=== PATIENT | male | born 1955 | race Hispanic/Latino ===

== ENCOUNTER 2018-10-10 16:16 | Inpatient (IN) | payer SELFPAY ==
[2018-10-10 16:50] LABS: #Eosinphils 0.2 thou/uL (0.0-0.7); #Lymphocytes 1.8 thou/uL (1.20-3.40); #Monocytes 0.4 thou/uL (0.11-0.59); #Neutrophils 4.2 thou/uL (1.40-6.50); %Basophils 0.4 % (0.0-1.0); %Eosinophils 2.8 % (0.0-10.0); %Lymphocytes 27.4 % (21.0-51.0); %Monocytes 5.9 % (0.0-10.0); %Neutrophils 63.5 % (42.0-75.0); Hemoglobin 14.3 g/dL (14.0-18.0); Mean Corpuscular HGB CONC 33.4 g/dL (32.0-36.0); Mean Corpuscular Hemoglobin 30.6 pg (27.0-31.0); Mean Corpuscular Volume 91.7 fL (78.0-98.0); Mean Platelet Volume 9.3 fL (7.4-10.4); Platelet Count 176 thou/uL (130-400); RBC Distribution Width 12.7 % (11.5-14.5); Red Blood Cell (RBC) Count 4.67 mill/uL (4.70-6.10); White Blood Cell (WBC) Count 6.6 thou/uL (4.8-10.8)
[2018-10-10 16:59] LABS: PTT 29.2 SEC (22.9-36.1); Prothrombin Time 13.2 SEC (12.0-14.7)
[2018-10-10 17:12] LABS: ALT (SGPT) 14 U/L (8-55); AST (SGOT) 12 U/L (5-34); Albumin 4.1 g/dL (3.4-4.8); Alkaline Phosphatase 98 U/L (40-150); Anion Gap 14 mmol/L (10-20); BUN (Urea Nitrogen) 24 mg/dL (8.4-25.7); Bilirubin, Total 0.3 mg/dL (0.2-1.2); Calc. Creatinine Clearance 0 mL/min (70-130); Calcium 9.4 mg/dL (7.8-10.44); Carbon Dioxide 26 mmol/L (23-31); Chloride 108 mmol/L (98-107); Estimated GFR-MDRD 41; Globulin 3.4 g/dL (2.4-3.5); Glucose 167 mg/dL (80-115); Potassium 4.1 mmol/L (3.5-5.1); Protein, Total 7.5 g/dL (5.8-8.1); Sodium 144 mmol/L (136-145)
--- NOTE | 2018-10-10 17:50 | CT ---
CT BRAIN WITHOUT CONTRAST: History: Difficulty ambulating. Comparison: None. FINDINGS: There is a left post-central gyrus calcification in the parietal lobe. No acute hemorrhage or infarct . No midline shift or mass effect. Moderate microvascular ischemic changes. Calvarium is intact. Mild mucosal thickening of the ethmoid. IMPRESSION: Moderate microvascular ischemic changes. No acute intracranial abnormality. POS: [facility]
[2018-10-10] MEDS ORDERED: Nitroglycerin 2% Ointment 1 INCH/1 GM Packet ONE (18:21)
[2018-10-10] MEDS ORDERED: cloNIDine 0.1 MG TAB ONE (18:21)
[2018-10-10] MEDS ORDERED: hydrALAZINE 20 MG/ML VIAL SLOW IVP PRN (18:52)
[2018-10-10] MEDS ORDERED: Senokot S 8.6-50 MG TAB PO PRN (18:52)
[2018-10-10] MEDS ORDERED: Guaifenesin DM 100-10/5 ML UDCUP PO PRN (18:52)
[2018-10-10] MEDS ORDERED: Labetalol HCl 100 MG/20 ML VIAL SLOW IVP PRN (18:52)
[2018-10-10] MEDS ORDERED: Amlodipine 10 MG TAB PO SCH (19:00)
[2018-10-10 19:10] LABS: Bilirubin Negative (Negative); Blood, Urine Negative (Negative); Clarity CLEAR (Clear); Glucose, Urine (Dipstick) 100 mg/dL (Negative); Leukocyte Negative (Negative); Nitrite Negative (Negative); Protein, Urine (Dipstick) 100 mg/dL (Neg-Trace); Specific Gravity, Urine 1.019 (1.002-1.036); Urobilinogen 0.2 mg/dL (0.2-1.0)
[2018-10-10 19:12] LABS: Bacteria/HPF None Seen HPF (None Seen); Hyaline Casts/LPF 0-3 HYALINE CAST LPF (0-3 Hyaline); Pathc Cast-AUWi Flag 0.29 (0-2.49); RBC/HPF 0-3 HPF (0-3); Squamous Epithelial 0-3 HPF (0-3); WBC/HPF 0-3 HPF (0-3)
[2018-10-10 19:50] LABS: Hemoglobin A1c 6.6 % (4.0-6.0)
--- NOTE | 2018-10-10 19:58 | HP ---
REASON FOR ADMISSION: Acute CVA, uncontrolled hypertension, and acute kidney injury. HISTORY OF PRESENTING ILLNESS: The patient gives history of waking up in the morning and driving to a store. While he was coming back from the store and was trying to open his car door, he was not feeling right and was getting swayed to the right side. He also felt weakness on the right side especially lower extremity more than right upper extremity. He felt like as if he had no control in his legs. All of this happened yesterday morning. This continued on with symptom not relieving and the patient finally made it to the emergency room after he spoke about all this to his family. He has no complaints of chest pain, palpitations, PND, or orthopnea. The patient has never been to a physician in a long time now. He does not take any medications. No complaints of trouble swallowing from yesterday. PAST MEDICAL AND SURGICAL HISTORY: None. CURRENT MEDICATIONS: None. ALLERGIES: NO KNOWN DRUG ALLERGIES. PERSONAL HISTORY: Smokes 1 pack a day and has been doing so for more than 35 years. Does not abuse alcohol or drugs. Lives with his . He works in construction. FAMILY HISTORY: Mother at the age of 66 years. She has had history of stroke and was a heavy smoker as well. Father at the age of 88 years from natural causes. CODE STATUS: Full. REVIEW OF SYSTEMS: CONSTITUTIONAL: Negative for weight loss or gain, ability to conduct usual activities. SKIN: Negative for rash, itching. EYES: Negative for double vision, pain. ENT/MOUTH: Negative for nose bleeding, neck stiffness, pain, tenderness. CARDIOVASCULAR: Negative for palpitations, dyspnea on exertion, orthopnea. RESPIRATORY: Negative for shortness of breath, wheezing, cough, hemoptysis, fever or night sweats. GASTROINTESTINAL: Negative for poor appetite, abdominal pain, heartburn, nausea , vomiting, constipation, or diarrhea. GENITOURINARY: Negative for urgency, frequency, dysuria, nocturia. MUSCULOSKELETAL: Negative for pain, swelling. NEUROLOGIC/PSYCHIATRIC: Negative for anxiety, depression. ALLERGY/IMMUNOLOGIC: Negative for skin rash, bleeding tendency. PHYSICAL EXAMINATION: GENERAL: The patient is a 63-year-old male, who is currently not in any acute distress. VITAL SIGNS: Blood pressure 214/94, pulse 80 per minute, respiratory rate 20 per minute, temperature 97.8 degrees Fahrenheit, and saturating 98% on room air. NECK: Supple. No elevated JVD. HEENT: Eyes, extraocular muscles intact. Pupils reacting to light. Oral cavity, mucous membranes are moist. No exudates or congestion. CARDIOVASCULAR SYSTEM: S1 and S2 heard. Regular rhythm. Loud S2. RESPIRATORY SYSTEM: Air entry 1+ bilateral. Scattered rhonchi plus no rales or wheezes. ABDOMEN: Soft. Bowel sounds heard. No tenderness, rigidity, or guarding. EXTREMITIES: No peripheral edema or calf tenderness. VASCULAR SYSTEM: Peripheral pulses 1+ bilateral. No ischemic ulcerations or gangrene. CENTRAL NERVOUS SYSTEM: Cranial nerves are grossly intact. Motor system, strength is 4/5 in right upper and lower extremity. Left upper and lower extremity are 5 /5. Reflexes are 2+ bilateral. Babinski is upgoing on the right side. Cerebellar signs are grossly intact. Sensation to touch is decreased on the right lower extremity, but normal in all the other 3 extremities. Gait was not tested. PSYCHIATRIC SYSTEM: The patient's mood is euthymic. No hallucinations or delusions. LABORATORY DATA: H and H of 14 and 42, platelet count 176, white count of 6, and MCV is 91 with 63% neutrophils. PT, INR, and PTT within normal limits. Serum bicarb 26, BUN 24, creatinine 1.7, and serum glucose 167. The first set of cardiac enzymes are negative. Liver enzymes are within normal limits. CT brain shows moderate microvascular ischemic changes. No acute intracranial abnormality. EKG shows normal sinus rhythm at 64 beats per minute. There is LVH strain pattern seen. CLINICAL IMPRESSION AND PLAN: The patient will be admitted to stroke unit for right hemiparesis with hypertensive urgency/emergency. The patient has not been to a physician for more than 20 years or so now. He does not take any medications. He has not been diagnosed with hypertension before that. He will be given a dose of Norvasc, 1 inch of nitroglycerin paste now, and we will continue him on Lopressor 25 mg twice daily, hydralazine 25 mg 3 times daily and clonidine twice daily. Full-dose aspirin as well. We will consult Stroke Team and Dr. Martinez, who is on-call for Neurology as well. Ultrasound carotids, MRI brain and echo 2D Doppler for complete workup. A HbA1c to rule out diabetes. The patient's serum sugar is 160+ at present. The patient likely has metabolic syndrome as well. We will closely monitor him on telemetry. We will try to keep his systolic blood pressures at least at 160 in view of stroke symptoms. Job ID: [id number] DEVON
[2018-10-10] MEDS: cloNIDine 0.1 MG TAB PO SCH (20:37)
--- NOTE | 2018-10-10 22:32 | ULT ---
ULTRASOUND CAROTID DOPPLER STANDARD: History: CVA. Comparison: None. Technique: Real-time grayscale, color doppler and spectral analysis of the extracranial carotid and v ertebral arteries was performed. FINDINGS: Antegrade flow both vertebral arteries. No elevated peak systolic velocities within the internal velasquez tid arteries. Low grade plaque. IMPRESSION: No hemodynamically significant stenosis. POS: [facility]
[2018-10-10 22:43] VITALS: BMI 30.4
[2018-10-10] MEDS: hydrALAZINE 25 MG TAB PO SCH (22:59)
[2018-10-10] MEDS: Famotidine 20 MG TAB PO SCH (22:59)
[2018-10-10] MEDS: Metoprolol Tartrate 25 MG TAB PO SCH (22:59)
[2018-10-10] MEDS: Atorvastatin Calcium 40 MG TAB PO SCH (22:59)
[2018-10-11] MEDS: Acetaminophen 325 MG TAB PO PRN ×2 (03:58→11:38)
[2018-10-11 05:55] LABS: #Eosinphils 0.3 thou/uL (0.0-0.7); #Lymphocytes 1.8 thou/uL (1.20-3.40); #Monocytes 0.5 thou/uL (0.11-0.59); #Neutrophils 2.9 thou/uL (1.40-6.50); %Basophils 0.8 % (0.0-1.0); %Eosinophils 4.8 % (0.0-10.0); %Lymphocytes 32.9 % (21.0-51.0); %Monocytes 8.4 % (0.0-10.0); %Neutrophils 53.2 % (42.0-75.0); Hemoglobin 12.9 g/dL (14.0-18.0); Mean Corpuscular Hemoglobin 30.2 pg (27.0-31.0); Mean Corpuscular Volume 91.7 fL (78.0-98.0); Mean Platelet Volume 10.1 fL (7.4-10.4); Platelet Count 161 thou/uL (130-400); RBC Distribution Width 12.6 % (11.5-14.5); Red Blood Cell (RBC) Count 4.25 mill/uL (4.70-6.10); White Blood Cell (WBC) Count 5.5 thou/uL (4.8-10.8)
[2018-10-11 06:28] LABS: Anion Gap 12 mmol/L (10-20); BUN (Urea Nitrogen) 23 mg/dL (8.4-25.7); Calc. Creatinine Clearance 59 mL/min (70-130); Calcium 8.6 mg/dL (7.8-10.44); Carbon Dioxide 22 mmol/L (23-31); Cardiac Risk 4.8 (Less than 4.5); Chloride 110 mmol/L (98-107); Cholesterol 144 mg/dl (< 200 Desired); Estimated GFR-MDRD 40; Glucose 172 mg/dL (80-115); HDL Cholesterol 30 mg/dL (>60 Neg Risk); LDL Cholesterol, Calculated 79 mg/dL; Potassium 3.8 mmol/L (3.5-5.1); Sodium 140 mmol/L (136-145); Triglycerides 177 mg/dL (Less than 150)
[2018-10-11] MEDS: Enoxaparin Sodium 40 MG/0.4 ML SYRINGE SC SCH (08:42)
[2018-10-11] MEDS: Amlodipine 10 MG TAB PO SCH (08:43)
[2018-10-11] MEDS: Famotidine 20 MG TAB PO SCH ×2 (08:43→21:35)
[2018-10-11] MEDS: Aspirin 325 mg Enteric Coated Tablet PO SCH (08:43)
[2018-10-11] MEDS: Metoprolol Tartrate 25 MG TAB PO SCH ×2 (08:43→21:35)
[2018-10-11] MEDS: hydrALAZINE 25 MG TAB PO SCH ×3 (08:43→21:35)
[2018-10-11] MEDS: cloNIDine 0.1 MG TAB PO SCH ×2 (08:43→21:35)
[2018-10-11 10:14] LABS: Amphetamine Not Detected (NotDetected); Barbiturates Screen Not Detected (NotDetected); Benzodiazepine Screen Not Detected (NotDetected); Cocaine Metabolite Screen Not Detected (NotDetected); Medtox Control Line Valid? VALID (VALID); Medtox Reader # READER 1; Methadone Not Detected (NotDetected); Methamphetamine Not Detected (NotDetected); Opiate Screen Not Detected (NotDetected); Oxycodone Screen Not Detected (NotDetected); Phencyclidine (PCP) Not Detected (NotDetected); THC/Cannabinoid Screen Not Detected (NotDetected); Tricyclic Screen Not Detected (NotDetected)
--- NOTE | 2018-10-11 10:24 | PDOC.PN ---
- Subjective Encounter Start Date: 10/11/18 Encounter Start Time: 09:35 Subjective: feels better, still has swaying to side when he tries to amb -: no chest pain or palp or sob - Objective Resuscitation Status - Order Detail: 10/10/18 18:48 Resuscitation Status Routine Resuscitation Status: FULL: Full Resuscitation MAR Reviewed: Yes Vital Signs & Weight: Vital Signs (12 hours) Temp Pulse Resp BP BP BP BP 10/11/18 09:42 170/99 H 10/11/18 08:54 169/107 H 192/102 H 10/11/18 08:43 57 L 174/92 H 10/11/18 08:00 10/11/18 07:45 98.1 F 64 16 159/93 H 10/11/18 04:00 98.2 F 60 16 146/90 H 10/10/18 23:08 98 F 16 10/10/18 23:00 72 166/94 H 10/10/18 22:59 72 166/94 H BP Pulse Ox 10/11/18 09:42 10/11/18 08:54 179/95 H 10/11/18 08:43 10/11/18 08:00 97 10/11/18 07:45 97 10/11/18 04:00 98 10/10/18 23:08 97 10/10/18 23:00 10/10/18 22:59 Weight Weight 212 lb 3.2 oz I&O: 10/10/18 10/11/18 10/12/18 06:59 06:59 06:59 Intake Total 476 Balance 476 Result Diagrams: 10/11/18 05:02 10/11/18 05:02 Phys Exam - Physical Examination HEENT: PERRLA, moist MMs Neck: no JVD, supple Respiratory: no wheezing, no rales Cardiovascular: RRR, no significant murmur Gastrointestinal: soft, non-tender, positive bowel sounds Musculoskeletal: no edema, pulses present Neurological: non-focal, moves all 4 limbs mild right hemiparesis LE>UE Psychiatric: normal affect, A&O x 3 Dx/Plan (1) Acute CVA (cerebrovascular accident) Code(s): I63.9 - CEREBRAL INFARCTION, UNSPECIFIED Status: Acute (2) Hypertensive urgency Code(s): I16.0 - HYPERTENSIVE URGENCY Status: Acute (3) DM type 2 (diabetes mellitus, type 2) Status: Acute Qualifiers: Diabetes mellitus long term care social worker insulin use: without long term care social worker use Diabetes mellitus complication status: with unspecified complications Qualified Code(s) : E11.8 - Type 2 diabetes mellitus with unspecified complications (4) Dyslipidemia Code(s): E78.5 - HYPERLIPIDEMIA, UNSPECIFIED Status: Chronic (5) Obesity (BMI 30.0-34.9) Code(s): E66.9 - OBESITY, UNSPECIFIED Status: Chronic (6) Tobacco abuse Code(s): Z72.0 - TOBACCO USE Status: Chronic (7) CARMEN (acute kidney injury) Code(s): N17.9 - ACUTE KIDNEY FAILURE, UNSPECIFIED Status: Acute Comment: ? ckd - Plan will start small dose of glipizide -: await MRI results -: on asp, lipitor -: needs further optimization of antihtn meds based on response -: is currently on norvasc, lopressor, clonidine, hydralazine * . Review of Systems - Medications/Allergies Allergies/Adverse Reactions: Allergies Allergy/AdvReac Type Severity Reaction Status Date / Time No Known Drug Allergies Allergy Verified 10/10/18 22:49 Medications: Current Medications Acetaminophen (Tylenol) 650 mg PO Q4H PRN PRN Reason: Headache/Fever/Mild Pain (1-3) Last Admin: 10/11/18 03:58 Dose: 650 mg Amlodipine Besylate (Norvasc) 10 mg PO DAILY [facility] Last Admin: 10/11/18 08:43 Dose: 10 mg Aspirin (Ecotrin) 325 mg PO DAILY [facility] Last Admin: 10/11/18 08:43 Dose: 325 mg Atorvastatin Calcium (Lipitor) 40 mg PO HS [facility] Last Admin: 10/10/18 22:59 Dose: 40 mg Clonidine (Catapres) 0.1 mg PO BID [facility] Last Admin: 10/11/18 08:43 Dose: 0.1 mg Enoxaparin Sodium (Lovenox) 40 mg SC 0900 [facility] Last Admin: 10/11/18 08:42 Dose: 40 mg Famotidine (Pepcid) 20 mg PO BID [facility] Last Admin: 10/11/18 08:43 Dose: 20 mg Guaifenesin/Dextromethorphan (Robitussin Dm) 15 ml PO Q4H PRN PRN Reason: Cough Hydralazine HCl (Apresoline) 10 mg SLOW IVP Q4H PRN PRN Reason: BP > 220/110 Hydralazine HCl (Apresoline) 25 mg PO TID [facility] Last Admin: 10/11/18 08:43 Dose: 25 mg Labetalol HCl (Normodyne) 20 mg SLOW IVP Q1H PRN PRN Reason: BP > 220/110 Metoprolol Tartrate (Lopressor) 25 mg PO BID [facility] Last Admin: 10/11/18 08:43 Dose: 25 mg Senna/Docusate Sodium (Senokot S) 2 tab PO BIDPRN PRN PRN Reason: Constipation Sodium Chloride (Flush - Normal Saline) 10 ml IVF PRN PRN PRN Reason: Saline Flush Last Admin: 10/11/18 08:43 Dose: 10 ml
--- NOTE | 2018-10-11 11:55 | MRI ---
MRI OF BRAIN NONCONTRAST: Comparison: Head CT previous day. Indication: Stroke. Gait imbalance. FINDINGS: There is a punctate focus of restriction involving the right aspect of the medulla. No mass effect or midline shift. Moderate chronic ischemic disease is present. There is patient motion which degrades image quality and limits assessment. Susceptibility artifact emanates from the right temporal region limiting visualization. Bilateral mastoid fluid left greater than right is present and there is scatt ered paranasal sinus mucosal thickening. The skull base flow voids are somewhat distorted by degree o f patient motion limiting assessment in this regard. IMPRESSION: 1. Punctate focus of restriction of the right aspect of the medulla, indicating a tiny recent infarct ion. 2. Moderate chronic ischemic disease. 3. Bilateral mastoid fluid, left greater than right, as well as mucosal inflammation. Correlate clini waylon. POS: [facility]
[2018-10-11] MEDS: Atorvastatin Calcium 40 MG TAB PO SCH (21:35)
[2018-10-12] MEDS: cloNIDine 0.1 MG TAB PO SCH (08:00)
[2018-10-12] MEDS: Famotidine 20 MG TAB PO SCH (08:00)
[2018-10-12] MEDS: Metoprolol Tartrate 25 MG TAB PO SCH (08:00)
[2018-10-12] MEDS: Amlodipine 10 MG TAB PO SCH (08:01)
[2018-10-12] MEDS: Aspirin 325 mg Enteric Coated Tablet PO SCH (08:01)
[2018-10-12] MEDS: Enoxaparin Sodium 40 MG/0.4 ML SYRINGE SC SCH (08:02)
[2018-10-12] MEDS: hydrALAZINE 25 MG TAB PO SCH (08:02)
[2018-10-12] MEDS ORDERED: Furosemide 40 MG TAB PO SCH (09:00)
--- NOTE | 2018-10-12 12:14 | PDOC.PN ---
- Subjective Encounter Start Date: 10/12/18 Encounter Start Time: 09:30 Subjective: feels good, no weakness now -: is amb in room - Objective Resuscitation Status - Order Detail: 10/10/18 18:48 Resuscitation Status Routine Resuscitation Status: FULL: Full Resuscitation MAR Reviewed: Yes Vital Signs & Weight: Vital Signs (12 hours) Temp Pulse Resp BP BP BP BP 10/12/18 09:59 163/93 H 10/12/18 08:02 66 196/108 H 10/12/18 08:01 66 196/108 H 10/12/18 08:00 99 F 70 20 196/108 H 10/12/18 07:59 196/108 H 10/12/18 04:00 98.6 F 68 16 175/97 H Pulse Ox 10/12/18 09:59 10/12/18 08:02 10/12/18 08:01 10/12/18 08:00 96 10/12/18 07:59 10/12/18 04:00 94 L Weight Weight 212 lb 3.2 oz I&O: 10/11/18 10/12/18 10/13/18 06:59 06:59 06:59 Intake Total 1316 240 Balance 1316 240 Result Diagrams: 10/11/18 05:02 10/11/18 05:02 Phys Exam - Physical Examination HEENT: PERRLA, moist MMs Neck: no JVD, supple Respiratory: no wheezing, no rales Cardiovascular: RRR, no significant murmur Gastrointestinal: soft, non-tender, positive bowel sounds Musculoskeletal: no edema, pulses present Neurological: non-focal, moves all 4 limbs Psychiatric: normal affect, A&O x 3 Dx/Plan (1) Acute CVA (cerebrovascular accident) Code(s): I63.9 - CEREBRAL INFARCTION, UNSPECIFIED Status: Acute Comment: right medulla small infarct (2) Hypertensive urgency Code(s): I16.0 - HYPERTENSIVE URGENCY Status: Acute (3) DM type 2 (diabetes mellitus, type 2) Status: Acute Qualifiers: Diabetes mellitus termination clerk insulin use: without [facility] use Diabetes mellitus complication status: with unspecified complications Qualified Code(s) : E11.8 - Type 2 diabetes mellitus with unspecified complications Comment: new onset (4) Dyslipidemia Code(s): E78.5 - HYPERLIPIDEMIA, UNSPECIFIED Status: Chronic (5) Obesity (BMI 30.0-34.9) Code(s): E66.9 - OBESITY, UNSPECIFIED Status: Chronic (6) Tobacco abuse Code(s): Z72.0 - TOBACCO USE Status: Chronic (7) CARMEN (acute kidney injury) Code(s): N17.9 - ACUTE KIDNEY FAILURE, UNSPECIFIED Status: Acute Comment: ? ckd - Plan meds optimized for htn -: will likely need genna/arb if his creatinine levels remain same in 3 weeks -: to f/u with [facility] of pt's choice in 1 week -: says he can afford 30$/month for meds -: may dc home * . Review of Systems - Medications/Allergies Allergies/Adverse Reactions: Allergies Allergy/AdvReac Type Severity Reaction Status Date / Time No Known Drug Allergies Allergy Verified 10/10/18 22:49 Medications: Current Medications Acetaminophen (Tylenol) 650 mg PO Q4H PRN PRN Reason: Headache/Fever/Mild Pain (1-3) Last Admin: 10/11/18 11:38 Dose: 650 mg Amlodipine Besylate (Norvasc) 10 mg PO DAILY [facility] Last Admin: 10/12/18 08:01 Dose: 10 mg Aspirin (Ecotrin) 325 mg PO DAILY [facility] Last Admin: 10/12/18 08:01 Dose: 325 mg Atorvastatin Calcium (Lipitor) 40 mg PO HS [facility] Last Admin: 10/11/18 21:35 Dose: 40 mg Clonidine (Catapres) 0.1 mg PO BID [facility] Last Admin: 10/12/18 08:00 Dose: 0.1 mg Enoxaparin Sodium (Lovenox) 40 mg SC 0900 [facility] Last Admin: 10/12/18 08:02 Dose: 40 mg Famotidine (Pepcid) 20 mg PO BID [facility] Last Admin: 10/12/18 08:00 Dose: 20 mg Furosemide (Lasix) 40 mg PO DAILY [facility] Last Admin: 10/12/18 08:00 Dose: 40 mg Guaifenesin/Dextromethorphan (Robitussin Dm) 15 ml PO Q4H PRN PRN Reason: Cough Hydralazine HCl (Apresoline) 10 mg SLOW IVP Q4H PRN PRN Reason: BP > 220/110 Hydralazine HCl (Apresoline) 25 mg PO TID [facility] Last Admin: 10/12/18 08:02 Dose: 25 mg Labetalol HCl (Normodyne) 20 mg SLOW IVP Q1H PRN PRN Reason: BP > 220/110 Metoprolol Tartrate (Lopressor) 25 mg PO BID [facility] Last Admin: 10/12/18 08:00 Dose: 25 mg Senna/Docusate Sodium (Senokot S) 2 tab PO BIDPRN PRN PRN Reason: Constipation Sodium Chloride (Flush - Normal Saline) 10 ml IVF PRN PRN PRN Reason: Saline Flush Last Admin: 10/12/18 08:03 Dose: 10 ml
[2018-10-12 12:24] VITALS: TEMP 98.6
[2018-10-12 13:42] VITALS: BP 180/98
--- NOTE | 2018-10-13 10:48 | DIS ---
DATE OF ADMISSION: 10/10/2018 DATE OF DISCHARGE: 10/12/2018 DISCHARGE DISPOSITION: To home. PRIMARY DISCHARGE DIAGNOSES: 1. Acute CVA in the right medulla. 2. Hypertensive emergency. 3. New onset diabetes mellitus type 2. 4. Dyslipidemia. 5. Acute kidney injury. 6. Tobacco abuse. 7. Obesity. PROCEDURES DONE DURING HOSPITALIZATION: Ultrasound carotids done showed no hemodynamically significant stenosis. CT brain without contrast showed moderate microvascular ischemic changes. No acute intracranial abnormality. MRI brain done showed punctate focus of restriction of the right aspect of medulla indicating a tiny recent infarct, moderate chronic ischemic disease; bilateral mastoid fluid, left greater than right with mucosal inflammation. Echo with 2D Doppler done showed EF of 50% to 55% with mild concentric LVH. Moderate aortic regurgitation was noted. H and H were 12 and 39, platelet count 161, MCV was 91. Total cholesterol 144, triglycerides 177, LDL 79, HDL 30, HbA1c 6.6. Urine drug screen was negative. DISCHARGE MEDICATIONS: 1. Aspirin 325 mg p.o. daily. 2. Lipitor 40 mg p.o. at bedtime. 3. Norvasc 10 mg p.o. daily. 4. Clonidine 0.1 mg p.o. twice daily. 5. Hydralazine 25 mg p.o. three times daily. 6. Lopressor 25 mg twice daily. 7. Lasix 40 mg p.o. daily. ALLERGIES: NO KNOWN DRUG ALLERGIES. DISCHARGE PLAN: The patient to follow up with primary care physician in one week. BRIEF COURSE DURING HOSPITALIZATION: The patient initially came to ER on the with complaints of not being steady on his feet and was getting swayed to the right side. He also felt weak on the right side. His lower extremity was more weaker than the upper extremity on the right side. On arrival, the patient had systolic blood pressures of more than 200. He also had mild right hemiparesis with hypertensive emergency. The patient was placed on multiple medications to reduce his high blood pressure. Initial CT brain was negative for acute infarct. MRI revealed right midbrain infarct. He is also found to be new diabetic along with hyperlipidemia. The patient's medications were optimized during his stay here. The patient's creatinine was 1.7 and has remained the same on the next day as well around the same number. In view of this, no ALEX or ARBs were added. He needs to have ALEX or ARBs added in a week or two with labs to confirm creatinine levels. He is hemodynamically stable and neurologically stable prior to discharge. He is ambulating well and will be shortly discharged home. Please see a [id number] documentation on [employer] for the day of discharge. Job ID: [id number] MTDD
== END 2018-10-12 13:10 | disposition home or self-care (01) | DRG 65 ==
LOC: ERS 16:16 → 2SE 19:24
PROVIDERS: ADMIT Internal Medicine; ATTEND Internal Medicine
DX: I63.9 Cerebral infarction, unspecified (principal); N17.9 Acute kidney failure, unspecified; G81.91 Hemiplegia, unspecified affecting right dominant side; F17.210 Nicotine dependence, cigarettes, uncomplicated; I16.0 Hypertensive urgency; E11.9 Type 2 diabetes mellitus without complications; E78.5 Hyperlipidemia, unspecified; E66.9 Obesity, unspecified; Z68.30 Body mass index [BMI] 30.0-30.9, adult
CPT/HCPCS: 36415; 70450; 70551; 80048; 80053; 80061; 80306; 81003; 81015; 83036; 84484; 85025; 85610; 85730; 90471; 90686; 90732; 93005; 93306; 93880; 94760; G0008; G0009; J1650

== ENCOUNTER 2019-04-15 22:14 | Emergency (ER) | payer OTHER, SELFPAY ==
[2019-04-15] MEDS ORDERED: Oxymetazoline HCl 0.05% (30 ML BOT) NS SCH (23:00)
[2019-04-15] MEDS ORDERED: cloNIDine 0.1 MG TAB ONE (23:37)
[2019-04-15] MEDS ORDERED: hydrALAZINE 25 MG TAB ONE (23:37)
[2019-04-15] MEDS ORDERED: Tranexamic Acid 1,000 MG/10 ML VIAL ONE (23:37)
== END 2019-04-16 00:15 | disposition home or self-care (01) ==
LOC: ERS 22:14
DX: R04.0 Epistaxis (principal); I10 Essential (primary) hypertension; F17.210 Nicotine dependence, cigarettes, uncomplicated; Z79.82 Long term (current) use of aspirin
CPT/HCPCS: 30903